=== PATIENT | male | born 1995 | race Caucasian/White ===

== ENCOUNTER 2016-07-09 15:43 | Emergency (ER) | payer BC, OTHER ==
[~2016-07-09] VITALS: Ht 170.2 cm; Wt 95.0 kg
[~2016-07-09 15:43] MED LIST: Z.0.NO CURRENT MEDS
[2016-07-09 15:53] VITALS: BP 135/80; PULSE 76; RESP 16; TEMP 98.4; O2SAT 98
[2016-07-09] MEDS ORDERED: CLON1TAB PO (16:03)
[2016-07-09] MEDS ORDERED: TRAZ100T4 PO (16:03)
[2016-07-09] MEDS ORDERED: FLUO40CA PO (16:03)
[2016-07-09] MEDS ORDERED: SODIUM CHLOR 0.9% 1000 ML INJ 1,000 ML IV SCH (16:17)
--- NOTE | 2016-07-09 16:27 | PD ---
HPI Chief Complaint: GI Complaint Time Seen by Provider: 16:12 Travel History International Travel<30 days: No Contact w/Intl Traveler<30days: No Traveled to known affect area: No History of Present Illness HPI Patient is a 20-year-old male who presents to emergency with complaints of nausea, vomiting and diarrhea for the past 4 days. Patient reports that for the past 4 days, he has not been able to eat or drink anything, reports that he did not eat anything out of the ordinary, denies any recent travels or trips. Patient reports that he has not taken any antibiotics recently, reports no sick contacts. Patient reports no abdominal pain, reports that he has cramping when he has his episodes of vomiting. Patient with no abdominal pain while in the emergency room. Patient denies any fevers or chills. Patient also reports that 2 weeks ago he started taking trazodone and place of clonazepam for his sleeping problems. Patient reports that he has noticed that he has been more forgetful over the past 2 weeks, reports concern that this may be due to his medication. Patient denies any headache or dizziness at this time , patient denies any vision changes. No other complaints. PFSH Past Medical History Anxiety: Yes Depression: Yes Influenza Vaccination: Yes Past Surgical History Oral Surgery: Yes Social History Alcohol Use: No Tobacco Use: No Substance Use: No Allergies-Medications (Allergen,Severity, Reaction): Coded Allergies: Penicillin (Verified Allergy, Severe, RASH, 07/09/16) Reported Meds & Prescriptions Reported Meds & Active Scripts Active Bentyl (Dicyclomine HCl) 20 Mg Tab 20 Mg PO TID Zofran Odt (Ondansetron Odt) 4 Mg Tab 4 Mg SL Q6HR PRN Reported Trazodone (Trazodone HCl) 100 Mg Tab 100 Mg PO HS Clonazepam 1 Mg Tab 1 Mg PO BID Fluoxetine (Fluoxetine HCl) 40 Mg Cap 80 Cap PO DAILY Review of Systems General / Constitutional: No: Fever Eyes: No: Visual changes HENT: No: Headaches Cardiovascular: No: Chest Pain or Discomfort Respiratory: No: Shortness of Breath Gastrointestinal: Positive: Nausea, Vomiting, Diarrhea, No: Abdominal Pain Genitourinary: No: Dysuria Musculoskeletal: No: Pain Skin: No Rash Neurologic: No: Weakness Psychiatric: No: Depression Endocrine: No: Polydipsia Hematologic/Lymphatic: No: Easy Bruising Physical Exam Narrative GENERAL: No acute distress, nontoxic SKIN: Focused skin assessment warm/dry. HEAD: Atraumatic. Normocephalic. EYES: Pupils equal and round. No scleral icterus. No injection or drainage. ENT: No nasal bleeding or discharge. Mucous membranes pink and moist. NECK: Trachea midline. No JVD. CARDIOVASCULAR: Regular rate and rhythm. No murmur appreciated. RESPIRATORY: No accessory muscle use. Clear to auscultation. Breath sounds equal bilaterally. GASTROINTESTINAL: Abdomen soft, non-tender, nondistended. Hepatic and splenic margins not palpable. MUSCULOSKELETAL: No obvious deformities. No clubbing. No cyanosis. No edema. NEUROLOGICAL: Awake and alert. No obvious cranial nerve deficits. Motor grossly within normal limits. Normal speech. PSYCHIATRIC: Appropriate mood and affect; insight and judgment normal. Data Data Last Documented VS Vital Signs Date Time Temp Pulse Resp B/P Pulse Ox O2 Delivery O2 Flow Rate FiO2 07/09/16 15:53 98.4 76 16 135/80 98 Room Air Orders Complete Blood Count With Diff (07/09/16 16:17) Comprehensive Metabolic Panel (07/09/16 16:17) Lipase (07/09/16 16:17) Prothrombin Time / Inr (Pt) (07/09/16 16:17) Act Partial Throm Time (Ptt) (07/09/16 16:17) Urinalysis - C+S If Indicated (07/09/16 16:17) Iv Access Insert/Monitor (07/09/16 16:17) Ondansetron Inj (Zofran Inj) (07/09/16 16:30) Sodium Chlor 0.9% 1000 Ml Inj (Ns 1000 M (07/09/16 16:17) Sodium Chloride 0.9% Flush (Ns Flush) (07/09/16 16:30) Famotidine Inj (Pepcid Inj) (07/09/16 16:30) Dicyclomine (Bentyl) (07/09/16 16:30) Sodium Chlor 0.9% 1000 Ml Inj (Ns 1000 M (07/09/16 16:30) Labs Laboratory Tests Test 07/09/16 16:22 White Blood Count 9.6 TH/MM3 Red Blood Count 5.22 MIL/MM3 Hemoglobin 15.3 GM/DL Hematocrit 46.7 % Mean Corpuscular Volume 89.5 FL Mean Corpuscular Hemoglobin 29.3 PG Mean Corpuscular Hemoglobin 32.7 % Concent Red Cell Distribution Width 12.9 % Platelet Count 274 TH/MM3 Mean Platelet Volume 9.4 FL Neutrophils (%) (Auto) 74.6 % Lymphocytes (%) (Auto) 16.6 % Monocytes (%) (Auto) 6.8 % Eosinophils (%) (Auto) 1.3 % Basophils (%) (Auto) 0.7 % Neutrophils # (Auto) 7.1 TH/MM3 Lymphocytes # (Auto) 1.6 TH/MM3 Monocytes # (Auto) 0.7 TH/MM3 Eosinophils # (Auto) 0.1 TH/MM3 Basophils # (Auto) 0.1 TH/MM3 CBC Comment DIFF FINAL Differential Comment Prothrombin Time 10.1 SEC Prothromb Time International 0.9 RATIO Ratio Activated Partial 29.1 SEC Thromboplast Time Sodium Level 143 MEQ/L Potassium Level 3.5 MEQ/L Chloride Level 107 MEQ/L Carbon Dioxide Level 27.0 MEQ/L Anion Gap 9 MEQ/L Blood Urea Nitrogen 12 MG/DL Creatinine 0.65 MG/DL Estimat Glomerular Filtration 158 ML/MIN Rate Random Glucose 90 MG/DL Calcium Level 9.0 MG/DL Total Bilirubin 0.4 MG/DL Aspartate Amino Transf 34 U/L (AST/SGOT) Alanine Aminotransferase 72 U/L (ALT/SGPT) Alkaline Phosphatase 173 U/L Total Protein 7.4 GM/DL Albumin 4.0 GM/DL Lipase 78 U/L [facility] Medical Decision Making Medical Screen Exam Complete: Yes Emergency Medical Condition: Yes Interpretation(s) Vital Signs Date Time Temp Pulse Resp B/P Pulse Ox O2 Delivery O2 Flow Rate FiO2 07/09/16 15:53 98.4 76 16 135/80 98 Room Air Differential Diagnosis Viral syndrome, gastroenteritis, electrolyte abnormality, confusion could be secondary to medication reaction as he recently started trazodone versus serotonin syndrome Narrative Course Patient is a 20-year-old male who presents to emergency room with complaints of nausea, vomiting and diarrhea for the past 4 days. Patient denies any sick contacts, denies any abdominal pain this time. Patient reports that he is unable to eat or drink anything due to his symptoms. Overall, abdomen is soft, nontender, nondistended, no peritoneal signs, patient nontoxic and evaluation. Plan to obtain lab work and give IV fluids and antiemetics. We'll perform serial abdominal exams while in the emergency room. Patient reports that for the past 2 weeks, he has been more confused and can't remember where he put things such as his glasses. Patient reports that he recently started taking trazodone in lieu of clonazepan. Patient denies taking any other new medications at this time. Patient denies any trauma to the head or neck. Patient with no neurological deficits from emergency room. Patient's symptoms began when he started taking trazodone, discussed with him that he is most likely suffering from side effects from trazodone, understands that he should call his primary care doctor and review his concerns so that he can have his medications changed. I did tell patient that he should stop using this medication as he is having side effects from the medication. Serotonin syndrome was considered, as patient has been describing some confusion, nausea, vomiting and diarrhea. Though this is a possibility, this is unlikely as patient's vital signs are stable. Typically with serotonin syndrome, patient would be tachycardic and hypertensive and hyperthermic. Patient is well- appearing, no flushed skin or diaphoresis or muscle rigidity or any tremors. Patient does not appear agitated, mucous membranes are moist and not dry. Vital Signs Date Time Temp Pulse Resp B/P Pulse Ox O2 Delivery O2 Flow Rate FiO2 07/09/16 15:53 98.4 76 16 135/80 98 Room Air CBC & BMP Diagram 07/09/16 16:22 Patient reevaluated, patient reports that he feels 100% better. Patient reports that he is able to drink and eat now. Abdomen is soft, nontender, nondistended, no peritoneal signs. Signs and symptoms of when to return to the emergency room was reviewed with patient in detail.. As per patient's trazodone , patient will hold off on taking further dose of trazodone, he will call his psychiatrist in the morning for medication change. Diagnosis Primary Impression: Nausea, vomiting and diarrhea Additional Impression: Medication reaction Qualified Code: T88.7XXA - Medication reaction, initial encounter Patient Instructions: General Instructions Departure Forms: Tests/Procedures, Work Release Enter return to work date: July 11, 2016 Additional Instructions: Please provide patient with a copy of his labwork at discharge Please call your primary care doctor first thing in the morning for earliest follow-up appointment Please stop taking trazodone until he was seen by your primary care doctor Please drink plenty of fluids Returns to emergency room if symptoms worsen or progress Return to emergency room as needed Med/Other Pt SpecificInfo: Prescription(s) given Scripts Dicyclomine (Bentyl)20 Mg Tab20 Mg PO TID #30 TAB Ref 0 Prov:Albertina Chacon DO 07/09/16 Ondansetron Odt (Zofran Odt)4 Mg Tab4 Mg SL Q6HR PRN (Nausea/Vomiting) #30 TAB Ref 0 Prov:Albertina Chacon DO 07/09/16 Disposition: 01 DISCHARGE HOME Condition: Stable Albertina Chacon DO July 09, 2016 16:27
[2016-07-09] MEDS ORDERED: SODIUM CHLORIDE 0.9% FLUSH 10 ML FLUSH IV FLUSH PRN (16:30)
[2016-07-09] MEDS ORDERED: DICYCLOMINE HCL 10 MG CAP PO ONE (16:30)
[2016-07-09] MEDS ORDERED: FAMOTIDINE 20 MG/2 ML VIAL IV PUSH ONE (16:30)
[2016-07-09] MEDS ORDERED: ONDANSETRON HCL 4 MG/2 ML VIAL IVP ONE (16:30)
[2016-07-09] MEDS ORDERED: SODIUM CHLOR 0.9% 1000 ML INJ 1,000 ML IV ONE (16:30)
[2016-07-09 17:25] LABS: AUTOMATED NEUTROPHIL # 7.1 TH/MM3 (1.8-7.7); BASOPHIL # 0.1 TH/MM3 (0-0.2); BASOPHIL % 0.7 % (0.0-2.0); EOSINOPHIL # 0.1 TH/MM3 (0-0.4); EOSINOPHIL % 1.3 % (0.0-4.0); HEMATOCRIT 46.7 % (39.0-51.0); LYMPH % 16.6 % (9.0-44.0); LYMPHOCYTE # 1.6 TH/MM3 (1.0-4.8); MEAN CELL VOLUME 89.5 FL (80.0-100.0); MEAN CORPUSCULAR HEMOGLOBIN 29.3 PG (27.0-34.0); MEAN CORPUSCULAR HGB CONC 32.7 % (32.0-36.0); MONO % 6.8 % (0.0-8.0); NEUT % 74.6 % (16.0-70.0); PLATELET COUNT 274 TH/MM3 (150-450); RED BLOOD COUNT 5.22 MIL/MM3 (4.50-5.90); RED CELL DISTRIBUTION WIDTH 12.9 % (11.6-17.2); WHITE BLOOD COUNT 9.6 TH/MM3 (4.0-11.0)
[2016-07-09 17:32] LABS: HEMO FLAGS DIFF FINAL
[2016-07-09 17:46] LABS: CHLORIDE 107 MEQ/L (98-107); POTASSIUM 3.5 MEQ/L (3.5-5.1); SODIUM (NA) 143 MEQ/L (136-145)
[2016-07-09 17:49] LABS: APTT (PATIENT) 29.1 SEC (24.3-30.1); INTERNATIONAL NORMALIZED RATIO 0.9 RATIO; PROTHROMBIN TIME - PATIENT 10.1 SEC (9.8-11.6)
[2016-07-09 17:50] LABS: ANION GAP 9 MEQ/L (5-15); BLOOD UREA NITROGEN 12 MG/DL (7-18)
[2016-07-09 17:52] LABS: ALT (GPT) 72 U/L (9-52); AST (GOT) 34 U/L (15-39)
[2016-07-09 17:53] LABS: GLOMERULAR FILTRATION RATE 158 ML/MIN (>89)
[2016-07-09 17:54] LABS: TOTAL BILIRUBIN ADULT 0.4 MG/DL (0.2-1.0)
[2016-07-09 17:55] LABS: ALKALINE PHOSPHATASE 173 U/L (45-117)
[2016-07-09] MEDS ORDERED: ZOFR4TAB3 SL (17:56)
[2016-07-09] MEDS ORDERED: BENT20TA PO (17:57)
[2016-07-09 18:55] LABS: BLOOD, URINE NEG (NEG); GLUCOSE,URINE NEG (NEG); KETONE, URINE NEG (NEG); NITRITE,URINE NEG (NEG)
[2016-07-09 19:11] VITALS: BP 134/76; PULSE 80; RESP 16; O2SAT 98
[2016-07-09 19:11] LABS: MUCUS URINE MOD /lpf (OCC); SQUAMOUS EPITHELIAL CELL URINE 0-5 /hpf (0-5); URINE COLOR YELLOW (YELLW/STRAW)
[2016-07-09 19:14] LABS: COMMENT (UR) CULT NOT INDICATED; CULTURE IF INDICATED CULT NOT INDICATED
== END 2016-07-09 19:15 | disposition home or self-care (01) ==
LOC: PHED 15:43
DX: R11.2 Nausea with vomiting, unspecified (principal); R19.7 Diarrhea, unspecified; T43.215A Adverse effect of selective serotonin and norepinephrine reuptake inhibitors, initial encounter; R41.0 Disorientation, unspecified; Y92.9 Unspecified place or not applicable
CPT/HCPCS: 80053; 81001; 83690; 85025; 85610; 85730; 96361; 96374; 96375; 99284; J2405; J7030

== ENCOUNTER 2016-07-11 10:33 | Inpatient (IN) | payer OTHER ==
[~2016-07-11] VITALS: Ht 170.2 cm; Wt 91.5 kg
[~2016-07-11 10:33] MED LIST changes: +BENT20TA PO; +CLON1TAB PO; +FLUO40CA PO; +TRAZ100T4 PO; -Z.0.NO CURRENT MEDS; +ZOFR4TAB3 SL
[2016-07-11 10:48] VITALS: BP 145/68; PULSE 89; RESP 16; TEMP 98.7; O2SAT 98
--- NOTE | 2016-07-11 10:55 | PD ---
HPI Chief Complaint: Suicide Ideation/Attempt Time Seen by Provider: 10:35 Travel History International Travel<30 days: No Contact w/Intl Traveler<30days: No Traveled to known affect area: No History of Present Illness HPI The patient is a 20-year-old male who presents to the emergency department for suicidal ideation. The patient has a history of major depressive disorder and social anxiety. The patient was being followed by a psychiatrist, [facility], in [place], [place]. The patient was placed on Prozac and Klonopin, however, is continuing to have symptoms. Therefore, the patient was placed on trazodone and states he had an improvement of his symptoms for approximately one month. However, he said increasing thoughts of suicide over the last several days, he does have a plan, he would drive his car into a tree. The patient states he is not receiving much social support from his parents, he recently moved out of the house 3 months ago and has been living with 2 roommates. He denies any previous suicide attempts. He denies any hallucinations or delusions. He drinks alcohol intermittently, approximately twice a month, but does have a history of prior alcohol abuse. He also smokes marijuana occasionally. Patient recently was having nausea, vomiting, diarrhea , states his diarrhea has resolved but he still has intermittent vomiting. The patient took Zofran prior to arrival and currently has no nausea. He denies any current abdominal pain. PFSH Past Medical History Anxiety: Yes Depression: Yes Past Surgical History Oral Surgery: Yes Social History Alcohol Use: No Tobacco Use: No Substance Use: No Allergies-Medications (Allergen,Severity, Reaction): Coded Allergies: Penicillin (Verified Allergy, Severe, RASH, 07/11/16) Reported Meds & Prescriptions Reported Meds & Active Scripts Active Bentyl (Dicyclomine HCl) 20 Mg Tab 20 Mg PO TID Zofran Odt (Ondansetron Odt) 4 Mg Tab 4 Mg SL Q6HR PRN Reported Trazodone (Trazodone HCl) 100 Mg Tab 100 Mg PO HS Clonazepam 1 Mg Tab 1 Mg PO BID Fluoxetine (Fluoxetine HCl) 40 Mg Cap 80 Cap PO DAILY Review of Systems Except as stated in HPI: all other systems reviewed are Neg HENT: No: Headaches, Lightheadedness Cardiovascular: No: Chest Pain or Discomfort Respiratory: No: Shortness of Breath Gastrointestinal: Positive: Nausea, Vomiting, Diarrhea, No: Abdominal Pain Psychiatric: Positive: Anxiety, Depression, Suicidal Ideations, Substance Abuse , No: Disorder of Thought, Homicidal Ideation Physical Exam Narrative GENERAL: Awake, alert, very pleasant 20-year-old male appears his stated age is in no acute respiratory distress. He does appear mildly anxious and slightly tearful during examination. SKIN: Focused skin assessment warm/dry. HEAD: Atraumatic. Normocephalic. EYES: Pupils equal and round. No scleral icterus. No injection or drainage. ENT: No nasal bleeding or discharge. Mucous membranes pink and moist. NECK: Trachea midline. No JVD. CARDIOVASCULAR: Regular rate and rhythm. No murmur appreciated. RESPIRATORY: No accessory muscle use. Clear to auscultation. Breath sounds equal bilaterally. GASTROINTESTINAL: Abdomen soft, non-tender, nondistended. No rebound tenderness. MUSCULOSKELETAL: No obvious deformities. No clubbing. No cyanosis. No edema. NEUROLOGICAL: Awake and alert. No obvious cranial nerve deficits. Motor grossly within normal limits. Normal speech. Nonfocal. PSYCHIATRIC: Slightly flat affect, mildly anxious, slightly tearful during examination. Data Data Last Documented VS Vital Signs Date Time Temp Pulse Resp B/P Pulse Ox O2 Delivery O2 Flow Rate FiO2 07/11/16 11:30 16 99 Room Air 07/11/16 10:48 98.7 89 145/68 Orders Complete Blood Count With Diff (07/11/16 10:44) Comprehensive Metabolic Panel (07/11/16 10:44) Thyroid Stimulating Hormone (07/11/16 10:44) Psych Screen (07/11/16 10:44) Drug Screen, Random Urine (07/11/16 10:44) Alcohol (Ethanol) (07/11/16 10:44) Labs Laboratory Tests Test 07/11/16 11:06 White Blood Count 9.2 TH/MM3 Red Blood Count 5.04 MIL/MM3 Hemoglobin 15.0 GM/DL Hematocrit 44.7 % Mean Corpuscular Volume 88.8 FL Mean Corpuscular Hemoglobin 29.8 PG Mean Corpuscular Hemoglobin 33.5 % Concent Red Cell Distribution Width 12.3 % Platelet Count 218 TH/MM3 Mean Platelet Volume 8.8 FL Neutrophils (%) (Auto) 74.5 % Lymphocytes (%) (Auto) 13.1 % Monocytes (%) (Auto) 7.3 % Eosinophils (%) (Auto) 2.4 % Basophils (%) (Auto) 2.7 % Neutrophils # (Auto) 6.9 TH/MM3 Lymphocytes # (Auto) 1.2 TH/MM3 Monocytes # (Auto) 0.7 TH/MM3 Eosinophils # (Auto) 0.2 TH/MM3 Basophils # (Auto) 0.2 TH/MM3 CBC Comment DIFF FINAL Differential Comment Sodium Level 142 MEQ/L Potassium Level 3.7 MEQ/L Chloride Level 108 MEQ/L Carbon Dioxide Level 25.9 MEQ/L Anion Gap 8 MEQ/L Blood Urea Nitrogen 4 MG/DL Creatinine 0.59 MG/DL Estimat Glomerular Filtration 177 ML/MIN Rate Random Glucose 90 MG/DL Calcium Level 8.5 MG/DL Total Bilirubin 0.8 MG/DL Aspartate Amino Transf 23 U/L (AST/SGOT) Alanine Aminotransferase 59 U/L (ALT/SGPT) Alkaline Phosphatase 162 U/L Total Protein 7.0 GM/DL Albumin 3.8 GM/DL Thyroid Stimulating Hormone 2.310 uIU/ML 3rd Gen Ethyl Alcohol Level LESS THAN 3 MG/DL MDM Medical Decision Making Medical Screen Exam Complete: Yes Emergency Medical Condition: Yes Medical Record Reviewed: Yes Interpretation(s) Laboratory Tests Test 07/11/16 11:06 White Blood Count 9.2 TH/MM3 Red Blood Count 5.04 MIL/MM3 Hemoglobin 15.0 GM/DL Hematocrit 44.7 % Mean Corpuscular Volume 88.8 FL Mean Corpuscular Hemoglobin 29.8 PG Mean Corpuscular Hemoglobin 33.5 % Concent Red Cell Distribution Width 12.3 % Platelet Count 218 TH/MM3 Mean Platelet Volume 8.8 FL Neutrophils (%) (Auto) 74.5 % Lymphocytes (%) (Auto) 13.1 % Monocytes (%) (Auto) 7.3 % Eosinophils (%) (Auto) 2.4 % Basophils (%) (Auto) 2.7 % Neutrophils # (Auto) 6.9 TH/MM3 Lymphocytes # (Auto) 1.2 TH/MM3 Monocytes # (Auto) 0.7 TH/MM3 Eosinophils # (Auto) 0.2 TH/MM3 Basophils # (Auto) 0.2 TH/MM3 CBC Comment DIFF FINAL Differential Comment Sodium Level 142 MEQ/L Potassium Level 3.7 MEQ/L Chloride Level 108 MEQ/L Carbon Dioxide Level 25.9 MEQ/L Anion Gap 8 MEQ/L Blood Urea Nitrogen 4 MG/DL Creatinine 0.59 MG/DL Estimat Glomerular Filtration 177 ML/MIN Rate Random Glucose 90 MG/DL Calcium Level 8.5 MG/DL Total Bilirubin 0.8 MG/DL Aspartate Amino Transf 23 U/L (AST/SGOT) Alanine Aminotransferase 59 U/L (ALT/SGPT) Alkaline Phosphatase 162 U/L Total Protein 7.0 GM/DL Albumin 3.8 GM/DL Thyroid Stimulating Hormone 2.310 uIU/ML 3rd Gen Ethyl Alcohol Level LESS THAN 3 MG/DL Differential Diagnosis Differential diagnoses includes major depressive disorder NOS, adjustment reaction, stress reaction, suicidal ideation, social anxiety, mood disorder NOS. Narrative Course Labs are drawn and sent. I discussed the patient with the charge nurse at [facility], the patient will be transferred after laboratory evaluation has resulted to the psychiatric unit. The patient has been placed under a Bai act is currently suicidal and does have a plan. Labs are unremarkable. The patient is medically clear to be evaluated by psychiatry. The patient will be transferred to [facility] to be evaluated by psychiatry. Disposition as per psych. Diagnosis Primary Impression: Major depressive disorder Qualified Code: F33.9 - Recurrent major depressive disorder, remission status unspecified Additional Impression: Suicidal ideation Condition: Stable Nelson Currie MD July 11, 2016 10:55
[2016-07-11 11:23] LABS: AUTOMATED NEUTROPHIL # 6.9 TH/MM3 (1.8-7.7); BASOPHIL # 0.2 TH/MM3 (0-0.2); BASOPHIL % 2.7 % (0.0-2.0); EOSINOPHIL # 0.2 TH/MM3 (0-0.4); EOSINOPHIL % 2.4 % (0.0-4.0); HEMATOCRIT 44.7 % (39.0-51.0); LYMPH % 13.1 % (9.0-44.0); LYMPHOCYTE # 1.2 TH/MM3 (1.0-4.8); MEAN CELL VOLUME 88.8 FL (80.0-100.0); MEAN CORPUSCULAR HEMOGLOBIN 29.8 PG (27.0-34.0); MEAN CORPUSCULAR HGB CONC 33.5 % (32.0-36.0); MONO % 7.3 % (0.0-8.0); NEUT % 74.5 % (16.0-70.0); PLATELET COUNT 218 TH/MM3 (150-450); RED BLOOD COUNT 5.04 MIL/MM3 (4.50-5.90); RED CELL DISTRIBUTION WIDTH 12.3 % (11.6-17.2); WHITE BLOOD COUNT 9.2 TH/MM3 (4.0-11.0)
[2016-07-11 11:24] LABS: HEMO FLAGS DIFF FINAL
[2016-07-11 11:29] LABS: CHLORIDE 108 MEQ/L (98-107); POTASSIUM 3.7 MEQ/L (3.5-5.1); SODIUM (NA) 142 MEQ/L (136-145)
[2016-07-11 11:34] LABS: ANION GAP 8 MEQ/L (5-15); BICARBONATE 25.9 MEQ/L (21.0-32.0); BLOOD UREA NITROGEN 4 MG/DL (7-18)
[2016-07-11 11:37] LABS: ALT (GPT) 59 U/L (9-52); AST (GOT) 23 U/L (15-39); GLOMERULAR FILTRATION RATE 177 ML/MIN (>89)
[2016-07-11 11:38] LABS: TOTAL BILIRUBIN ADULT 0.8 MG/DL (0.2-1.0)
[2016-07-11 11:40] LABS: ALKALINE PHOSPHATASE 162 U/L (45-117)
[2016-07-11 13:20] VITALS: BP 137/70
--- NOTE | 2016-07-11 18:07 | PD ---
History of Present Illness Chief Complaint: Suicide Ideation/Attempt Time Seen by Provider: 17:20 Travel History International Travel<30 Days: No Contact w/Intl Traveler<30days: No Known affected area: No Legal Status Legal Status: Bai Act Bai Act Signed By: Nelson Bai Act Comment: Pt. states increasing thoughts of suicide History of Present Illness: History of Present Illness HPI The patient is a 20-year-old male with history of social anxiety disorder and depression who presents to the emergency department for psychiatric evaluation with complaints of suicidal ideation. The patient has been being followed by a psychiatrist on line for the past 1 and 1/2 year . The patient was placed on Prozac and Klonopin with positive clinical results but has been experiencing increase in symptoms in the last 5 days. He requested the physician taper him off the Klonopin and he was placed on trazodone but reports experiencing nausea and vomiting with Trazodone so it was discontinued.He has been experiencing increasing thoughts of suicide over the last several days with a plan to drive his car into a tree. he has not made any attempts at harming himself. he also reports increase in anxiety with panic attacks which have interfered with his ability to function at work. Patient was placed under a BA by Ed physician. EMR is reviewed. No previous contact with [facility] psychiatric department. he denies any previous inpatient psychiatric treatment. Current toxicology is pending . He admits he has been smoking marijuana for the past 2 months on a 5 day per week basis. Patient is alert and oriented male that appears stated age. He is clean and casually dressed. He is cooperative. Mood is anxious and depressed. Speech is clear, logical and goal directed. There is no psychosis and no skylar. He endorses suicidal ideation with plan to crash his car into a tree but no intent. States " I don't want to ". Sleeping well, level of energy is low, anhedonic. . PFSH Past Medical History Anxiety: Yes (social anxiety disorder) Depression: Yes Diminished Hearing: No Psychiatric: Yes (hx of suicide thoughts) Tetanus Vaccination: > 5 Years Influenza Vaccination: Yes Past Surgical History Oral Surgery: Yes (dental work) Psychiatric History Psychiatric History Hx Psychiatric Treatment: has been receiving psychiatric medication x 1 and 1/2 year via internet History of Inpatient Treatment: No Guns or firearms in home: No Social History Single male. Completed high school and some college. works as a on call pharmacy technician x 2 years. Lives with 2 roommates. never Hx Alcohol Use: Yes (hx of ETOH use but states now beer twice a month) Hx Tobacco Use: Yes (smokes cigs 4 a day) Hx Substance Use: No Substance Use Type: Marijuana Hx of Substance Use Treatment: No Family Psychiatric History one aunt with depression and attempted suicide Allergies-Medications (Allergen,Severity, Reaction): Coded Allergies: Penicillin (Verified Allergy, Severe, RASH, 07/11/16) Reported Meds & Prescriptions Reported Meds & Active Scripts Active Bentyl (Dicyclomine HCl) 20 Mg Tab 20 Mg PO TID Zofran Odt (Ondansetron Odt) 4 Mg Tab 4 Mg SL Q6HR PRN Reported Trazodone (Trazodone HCl) 100 Mg Tab 100 Mg PO HS Clonazepam 1 Mg Tab 1 Mg PO BID Fluoxetine (Fluoxetine HCl) 40 Mg Cap 80 Cap PO DAILY Review of Systems Constitutional: COMPLAINS OF: Change in appetite Endocrine: DENIES: Heat/cold intolerance, Polydipsia, Polyuria, Polyphagia Eyes: DENIES: Blurred vision, Diplopia, Eye inflammation, Eye pain, Vision loss , Photosensitivity, Double Vision Ears, nose, mouth, throat: DENIES: Tinnitus, Hearing loss, Vertigo, Nasal discharge, Oral lesions, Throat pain, Hoarseness, Ear Pain, Running Nose, Epistaxis, Sinus Pain, Toothache, Odynophagia Respiratory: DENIES: Apneas, Cough, Snoring, Wheezing, Hemoptysis, Sputum production, Shortness of breath Cardiovascular: DENIES: Chest pain, Palpitations, Syncope, Dyspnea on Exertion , PND, Lower Extremity Edema, Orthopnea, Claudication Gastrointestinal: COMPLAINS OF: Nausea, Vomiting Genitourinary: DENIES: Sexual dysfunction, Urinary frequency, Urinary incontinence, Urgency, Hematuria, Dysuria, Nocturia, Penile Discharge, Testicular Pain, Testicular Swelling Musculoskeletal: DENIES: Joint pain, Muscle aches, Stiffness, Joint Swelling, Back pain, Neck pain Integumentary: DENIES: Abnormal pigmentation, Nail changes, Pruritus, Rash Hematologic/lymphatic: DENIES: Bruising, Lymphadenopathy Immunologic/allergic: DENIES: Eczema, Urticaria Neurologic: DENIES: Abnormal gait, Headache, Localized weakness, Paresthesias, Seizures, Speech Problems, Tremor, Poor Balance Psychiatric: COMPLAINS OF: Anxiety, Depression, Suicidal Ideation Exam Alert: Yes [place]: Person (ox 4) Mood: Anxious, Depressed Affect: Restricted Speech: Clear, Logical Eye Contact: Normal Memory Intact: Comment (no impairmetn) Hallucinations: Other (negative) Delusions: No Suicidal: Intent (neagtive), Plan, Ideation Homicidal: Ideation (neagtive) Insight/Judgement Fair. Not impaired. MDM Medical Decision Making Medical Record Reviewed: Yes Assessment/Plan 20 year old male with history of depression and anxiety under a BA for increase in symptoms of depression and anxiety with suicidal ideation and plan to crash his car into a tree. No intent ion of carrying thru at this time. The patient has been experiencing difficulty and has had a recent medication change and at present time is experiencing difficulty functioning. At this time patient requires inpatient treatment to adjust his medications, to reduce current symptoms as well as to maintain his safety. We have no prior history with this patient and his treating psychiatrist is only available for telemedicine visits. Orders Complete Blood Count With Diff (07/11/16 10:44) Comprehensive Metabolic Panel (07/11/16 10:44) Thyroid Stimulating Hormone (07/11/16 10:44) Psych Screen (07/11/16 10:44) Drug Screen, Random Urine (07/11/16 10:44) Alcohol (Ethanol) (07/11/16 10:44) Diet Regular Basic (07/11/16 Dinner) Admit Order (Ed Use Only) (07/11/16 ) Admit To Inpatient Psych (07/11/16 ) Code Status (07/11/16 18:02) Vital Signs (Adult) TANJA.[id number].E (07/11/16 18:02) Activity Oob Ad Parisa (07/11/16 18:02) Level Of Observation (Psych) (07/11/16 18:02) Acetaminophen (Tylenol) (07/11/16 18:15) Magnesium Hydroxide Liq (Milk Of Magnesi (07/11/16 18:15) Al-Mag Hy-Si 40-40-4 Mg/Ml Liq (Mag-Al P (07/11/16 18:15) Basic Metabolic Panel (Bmp) (07/12/16 06:00) Lipid Profile (07/12/16 06:00) Hemoglobin (Hgb) A1c (07/12/16 06:00) Results Vital Signs Date Time Temp Pulse Resp B/P Pulse Ox O2 Delivery O2 Flow Rate FiO2 07/11/16 13:20 81 16 137/70 07/11/16 11:30 16 99 Room Air 07/11/16 10:48 98.7 89 16 145/68 98 Laboratory Tests Test 07/11/16 11:06 White Blood Count 9.2 Red Blood Count 5.04 Hemoglobin 15.0 Hematocrit 44.7 Mean Corpuscular Volume 88.8 Mean Corpuscular Hemoglobin 29.8 Mean Corpuscular Hemoglobin 33.5 Concent Red Cell Distribution Width 12.3 Platelet Count 218 Mean Platelet Volume 8.8 Neutrophils (%) (Auto) 74.5 Lymphocytes (%) (Auto) 13.1 Monocytes (%) (Auto) 7.3 Eosinophils (%) (Auto) 2.4 Basophils (%) (Auto) 2.7 Neutrophils # (Auto) 6.9 Lymphocytes # (Auto) 1.2 Monocytes # (Auto) 0.7 Eosinophils # (Auto) 0.2 Basophils # (Auto) 0.2 CBC Comment DIFF FINAL Differential Comment Sodium Level 142 Potassium Level 3.7 Chloride Level 108 Carbon Dioxide Level 25.9 Anion Gap 8 Blood Urea Nitrogen 4 Creatinine 0.59 Estimat Glomerular Filtration 177 Rate Random Glucose 90 Calcium Level 8.5 Total Bilirubin 0.8 Aspartate Amino Transf 23 (AST/SGOT) Alanine Aminotransferase 59 (ALT/SGPT) Alkaline Phosphatase 162 Total Protein 7.0 Albumin 3.8 Thyroid Stimulating Hormone 2.310 3rd Gen Ethyl Alcohol Level LESS THAN 3 Diagnosis Primary Impression: Major depressive disorder Additional Impression: Suicidal ideation Admitting Information Admitting Physician Requests: Admit (Dr. multani) Condition: Stable Problem Qualifiers Primary Impression: Major depressive disorder Qualified Code: F33.9 - Recurrent major depressive disorder, remission status unspecified Shawna Osborn [facility] July 11, 2016 18:07 Shawna Osborn [facility] July 11, 2016 18:07
[2016-07-11] MEDS ORDERED: ACETAMINOPHEN 325 MG TAB PO PRN (18:15)
[2016-07-11] MEDS ORDERED: ALUMINUM/MAGNESIUM/SIMETH 30 ML CUP PO PRN (18:15)
[2016-07-11] MEDS ORDERED: MAGNESIUM HYDROXIDE SUSP 30 ML CUP PO PRN (18:15)
[2016-07-11 18:53] VITALS: BP 130/66; PULSE 90; RESP 20; TEMP 97.6; O2SAT 98
[2016-07-11 21:30] VITALS: BP 142/76; PULSE 72; RESP 16; TEMP 97.8
[2016-07-11] MEDS ORDERED: traZODone HCL 100 MG TAB PO PRN (22:30)
[2016-07-12 06:28] VITALS: BP 130/60; PULSE 74; RESP 18; TEMP 97.7; O2SAT 96
[2016-07-12 10:10] LABS: ANION GAP 9 MEQ/L (5-15); BLOOD UREA NITROGEN 4 MG/DL (7-18); CHLORIDE 104 MEQ/L (98-107); GLOMERULAR FILTRATION RATE 115 ML/MIN (>89); HDL CHOLESTEROL 40.5 MG/DL (40.0-60.0); LDL CHOLESTEROL 151 MG/DL (0-99); POTASSIUM 3.5 MEQ/L (3.5-5.1); SODIUM (NA) 138 MEQ/L (136-145)
[2016-07-12 12:22] LABS: HEMOGLOBIN A1a 1.3 %; HEMOGLOBIN A1b 1.3 %; HEMOGLOBIN Ao 87.4 %; HEMOGLOBIN LA1C 1.9 %; HEMOGLOBIN P3 3.1 %
--- NOTE | 2016-07-12 13:20 | HHI.HP ---
Provisional Diagnosis Admission Date July 11, 2016 at 18:07 Pyrites I. Major depression, single episode, severe Certification of Person's Competence To Provide Express and Informed Consent I have personally examined Miky Chinchilla , a person being served at [facility] on, July 12, 2016 13:07. Express and informed consent means consent voluntarily given in writing, by a competent person, after sufficient explanation and disclosure of the subject matter involved to enable the person to make a knowing and willful decision without any element of force, fraud, deceit, duress, or other form of constraint or coercion. This person is 18 years of age or older, is not now known to be incompetent to consent to treatment with a guardian advocate, and does not have a health care surrogate or proxy currently making medical treatment decisions. I have found this person to be one of the following: [X] Competent to provide express and informed consent, as defined above, for voluntary admission to this facility and is competent to provide express and informed consent for treatment. He/she has the consistent capacity to make well reasoned, willful, and knowing decisions concerning his or her medical or mental health treatment. The person fully and consistently understands the purpose of the admission for examination/placement and is fully capable of personally exercising all rights assured [place] Incompetent to provide express and informed consent to voluntary admission, and this is incompetent to provide express and informed consent to treatment. The person must be transferred to involuntary status and a petition for a guardian advocate filed with the Circuit Court. [] Refusing to provide express and informed consent to voluntary admission but is competent to provide express and informed consent for treatment. The person must be discharged or transferred to involuntary status. Form shall be completed within 24 hours of a person's arrival at the receiving facility and filed in the clinical record of each person: 1. Admitted on a voluntary basis 2. Permitted to provide express and informed consent to his/her own treatment 3. Allowed to transfer from involuntary to voluntary status 4. Prior to permitting a person to consent to his or her own treatment after having been previously found incompetent to consent to treatment. History of Present Illness Capacity: Has Capacity HPI This is a 20-year-old male with a one-year history of increasing depressive symptoms as a result of anxiety and panic attacks. The patient describes a history of anxiety symptoms dating back at least a year ago and he dropped out of college as a result. He describes social anxiety, diaphoresis, intolerance of being around others, tremulousness, etc. He experiences intermittent panic attacks which are unpredictable and cause shortness of breath, heart palpitations, feelings of dread and doom, diaphoresis, and [place] phobia. He has been treated by a tele-psychiatrist with increasing doses of Prozac, most recently 80 mg per day. He was also treated with Klonopin. Several days ago his anxiety and depression grew worse. The depressive symptoms included depressed mood, anhedonia, social withdrawal, decreased self- esteem, lack of energy, insomnia, and suicidal ideation. On the date of admission he drove himself to this emergency room in a panic attack, stating that he was feeling suicidal and out of control. Patient does have family that live locally and are supportive although his father works a lot. Patient has tried to consume alcohol but states it makes his symptoms worse. Review of Systems ROS Limitations: Other (anxiety sufficient to impair cognition.) Past Psych History Psychological trauma history Denied Violence risk - others (6 mos) Minimal Violence risk - self (6 mos) Moderate Substance Abuse History Drugs/Alcohol past 12 months Very periodic alcohol abuse. Past Family Social History Coded Allergies: Penicillin (Verified Allergy, Severe, RASH, 07/11/16) Active Scripts Dicyclomine (Bentyl)20 Mg Tab20 Mg PO TID #30 TAB Ref 0 Prov:Albertina Chacon DO 07/09/16 Ondansetron Odt (Zofran Odt)4 Mg Tab4 Mg SL Q6HR PRN (Nausea/Vomiting) #30 TAB Ref 0 Prov:Albertina Chacon DO 07/09/16 Reported Medications Trazodone 100 Mg [id number] Mg PO HS #30 TAB Ref 0 07/09/16 Clonazepam 1 Mg Tab1 Mg PO BID #60 TAB Ref 0 07/09/16 Fluoxetine 40 Mg Cap80 Cap PO DAILY #30 CAP Ref 0 07/09/16 Current Medications Medications (Trade) Dose Ordered Sig/David Route Start Time Stop Time Status Last Admin (Tylenol) 650 mg Q4H PRN PO 07/11/16 18:15 (Milk Of Magnesia Liq) 30 ml DAILY PRN PO 07/11/16 18:15 (Mag-Al Plus Susp Liq) 30 ml Q6H PRN PO 07/11/16 18:15 Family History Positive for depression and anxiety disorders. Social History Currently unemployed. Denies a history of drug abuse. Does have family support. Not and has no children. Patient's Strengths (min. 2) Verbal and has access to healthcare. Physical Exam GENERAL: SKIN: Warm and dry. HEAD: Normocephalic. EYES: No scleral icterus. No injection or drainage. NECK: Supple, trachea midline. No JVD or lymphadenopathy. CARDIOVASCULAR: Regular rate and rhythm without murmurs, gallops, or rubs. RESPIRATORY: Breath sounds equal bilaterally. No accessory muscle use. GASTROINTESTINAL: Abdomen soft, non-tender, nondistended. MUSCULOSKELETAL: No cyanosis, or edema. BACK: Nontender without obvious deformity. No CVA tenderness. Vital Signs Vital Signs Date Time Temp Pulse Resp B/P Pulse Ox O2 Delivery O2 Flow Rate FiO2 07/12/16 06:28 97.7 74 18 130/60 96 07/11/16 11:30 Room Air Mental Status Examination Speech: Unremarkable Orientation: x3 Memory: Unremarkable Thought Process: Circumstantial, Tangential Thought Content: Depersonal Hallucination Type: None Attention and Concentration: Good Suicidal Ideation: Yes Previous Suicide Attempts: No Homicidal Ideation: No Previous Homicide Attempts: No Insight: Fair Judgment: Unrealistic Affect: Anxious, Sad Mood: Sad, Anxious Motor Activity: Normal gait Assessment & Plan Problem List: (1) Depression, major, single episode, moderate ICD Code: F32.1 (2) Panic disorder ICD Code: F41.0 (3) Social anxiety disorder ICD Code: F40.10 Assessment & Plan Estimated LOS: 7 days. 20-year-old male with severely uncontrolled symptoms of anxiety that have led to significant symptoms of major depression. Patient now incapacitated from work and experiencing suicidal ideation. This physician will alter his medications as he was receiving too much Prozac and insufficient amount of anti-anxiety treatment. He will be started on Abilify at bedtime. He will be continued on some amount of clonazepam because this physician is concerned about withdrawal. He will be worked up for organic causes of anxiety and therefore thyroid function studies will be completed. He will also receive an EKG to make sure that the psychotropic medications are not interfering with his cardiac conduction system. Ganga Glaser MD July 12, 2016 13:19
[2016-07-12] MEDS: FLUoxetine HCL 20 MG CAP PO SCH (14:52)
[2016-07-12 18:48] VITALS: BP 125/62; PULSE 77; RESP 18; TEMP 98.3; O2SAT 97
[2016-07-12] MEDS: clonazePAM 1 MG TAB PO SCH (21:25)
[2016-07-12] MEDS: ARIPiprazole 2 MG TAB PO SCH (21:25)
[2016-07-13 05:47] VITALS: BP 121/60; PULSE 70; RESP 16; TEMP 97.6; O2SAT 98
[2016-07-13] MEDS: FLUoxetine HCL 20 MG CAP PO SCH (08:49)
[2016-07-13] MEDS: clonazePAM 1 MG TAB PO SCH ×2 (08:49→21:13)
--- NOTE | 2016-07-13 15:41 | HHI.PYPN ---
Subjective Remarks Patient was seen and case discussed with nursing. Patient is pleasant and cooperative with exam. Patient states that his suicidal ideation has resolved once he was admitted to the hospital. Feels that he is in a safe place. Mood is "pretty good." He spoke about his medications and he prefers not to be on Klonopin given its addictive nature and this will be noted in the chart. Asking for medication for sleep. Objective Alert: Yes [place]: Person (ox 4), Place, Date, Situation Mood: Anxious, Depressed Affect: Other (anxious) Memory Intact: Comment (no impairmetn) Hallucinations: Other (negative) Delusions: No Delusion Type: Other Suicidal: Intent (neagtive), Plan, Ideation (denies) Homicidal: Ideation (neagtive) Insight/Judgment Fair Vitals/IOs Vital Signs Date Time Temp Pulse Resp B/P Pulse Ox O2 Delivery O2 Flow Rate FiO2 07/13/16 05:47 97.6 70 16 121/60 98 07/11/16 11:30 Room Air Assessment & Plan Problem List: (1) Depression, major, single episode, moderate ICD Code: F32.1 (2) Panic disorder ICD Code: F41.0 (3) Social anxiety disorder ICD Code: F40.10 Assessment & Plan Add Imodium for diarrhea. Add when necessary Benadryl for sleep Justification for Cont. Inpt. Patient will decompensate in a less restrictive setting Andres Johnson DO July 13, 2016 15:41
[2016-07-13 17:58] VITALS: BP 133/67; PULSE 69; RESP 18; TEMP 97.9; O2SAT 96
[2016-07-13] MEDS: ARIPiprazole 2 MG TAB PO SCH (21:00)
[2016-07-13] MEDS: diphenhydrAMINE HCL 50 MG CAP PO PRN (21:12)
[2016-07-14 06:31] VITALS: BP 128/74; PULSE 77; RESP 16; TEMP 97.8; O2SAT 100
[2016-07-14] MEDS: FLUoxetine HCL 20 MG CAP PO SCH (09:00)
[2016-07-14] MEDS: clonazePAM 1 MG TAB PO SCH ×2 (09:03→21:28)
--- NOTE | 2016-07-14 11:01 | HHI.PYPN ---
Subjective Remarks Patient was seen and case discussed with nursing. Patient's diarrhea has resolved. Says his social anxiety is improving and he is no longer anxious here in the hospital. He is seen playing games with other patients. Says his suicidal ideation has resolved. Patient does appear brighter. Compliant with medications and tolerating them well Objective Alert: Yes [place]: Person (ox 4), Place, Date, Situation Mood: Calm Affect: Restricted Memory Intact: Comment (no impairmetn) Hallucinations: Other (negative) Delusions: No Delusion Type: Other Suicidal: Intent (neagtive), Plan, Ideation (denies) Homicidal: Ideation (neagtive) Insight/Judgment Poor Vitals/IOs Vital Signs Date Time Temp Pulse Resp B/P Pulse Ox O2 Delivery O2 Flow Rate FiO2 07/14/16 06:31 97.8 77 16 128/74 100 07/11/16 11:30 Room Air Assessment & Plan Problem List: (1) Depression, major, single episode, moderate ICD Code: F32.1 (2) Panic disorder ICD Code: F41.0 (3) Social anxiety disorder ICD Code: F40.10 Assessment & Plan Continue current treatment plan Justification for Cont. Inpt. Patient will decompensate in a less restrictive setting Andres Johnson DO July 14, 2016 11:01
[2016-07-14 20:00] VITALS: BP 128/64; PULSE 66; RESP 16; TEMP 98; O2SAT 100
[2016-07-14] MEDS: ARIPiprazole 2 MG TAB PO SCH (21:00)
[2016-07-14] MEDS: diphenhydrAMINE HCL 50 MG CAP PO PRN (21:28)
[2016-07-14] MEDS: LOPERAMIDE HCL 2 MG CAP PO PRN (21:56)
[2016-07-15 06:14] VITALS: BP 116/61; PULSE 61; RESP 16; TEMP 98.1
[2016-07-15] MEDS: FLUoxetine HCL 20 MG CAP PO SCH (09:18)
[2016-07-15] MEDS: clonazePAM 1 MG TAB PO SCH (09:18)
--- NOTE | 2016-07-15 12:53 | HHI.DS ---
Psychiatry Discharge Summary Inpatient Psychiatric care?: Yes Advance Directive: No Reason Not Provided: Patient not interested Mental Health AdvanceDirective: No Health Care Proxy: No Admission Admission Date July 11, 2016 at 18:07 Admission Diagnosis: (1) Depression, major, single episode, moderate ICD Code: F32.1 Brief History This is a 20-year-old male with a one-year history of increasing depressive symptoms as a result of anxiety and panic attacks. The patient describes a history of anxiety symptoms dating back at least a year ago and he dropped out of college as a result. He describes social anxiety, diaphoresis, intolerance of being around others, tremulousness, etc. He experiences intermittent panic attacks which are unpredictable and cause shortness of breath, heart palpitations, feelings of dread and doom, diaphoresis, and [place] phobia. He has been treated by a tele-psychiatrist with increasing doses of Prozac, most recently 80 mg per day. He was also treated with Klonopin. Several days ago his anxiety and depression grew worse. The depressive symptoms included depressed mood, anhedonia, social withdrawal, decreased self- esteem, lack of energy, insomnia, and suicidal ideation. On the date of admission he drove himself to this emergency room in a panic attack, stating that he was feeling suicidal and out of control. Patient does have family that live locally and are supportive although his father works a lot. Patient has tried to consume alcohol but states it makes his symptoms worse. Tobacco Use In Past 30 Days: No Tobacco Past 30 Days Alcohol Use: 2-4 Times Per Month Hospital Course Patient participated in individual and group therapies. Antidepressant and anti -anxiety medicines were modified. Patient was placed on clonazepam 2 mg every 12 hours after extensive informed consent. Patient understands he may become dependent on this medication and that if he does, he cannot go without it for risk of seizure,, and . However, patient wanted to stay on this medicine because it significantly helps with his anxiety disorder. At the time of discharge he reported no suicidal or homicidal ideation, plan or intent. No psychosis. Cognition intact and he verbally contracted for safety. Results Blood Pressure 116 / 61 Vital Signs Date Time Temp Pulse Resp B/P Pulse Ox O2 Delivery O2 Flow Rate FiO2 07/15/16 06:14 98.1 61 16 116/61 07/14/16 20:00 100 07/11/16 11:30 Room Air Laboratory Results Test 5/5/17 08:40 Hemoglobin A1c 4.7 % (4.3-6.0) Triglycerides Level 111 MG/DL (42-150) Cholesterol Level 214 MG/DL (120-200) LDL Cholesterol 151 MG/DL (0-99) HDL Cholesterol 40.5 MG/DL (40.0-60.0) Summary of Procedures None Pending results at discharge: No Medications # of Antipsychotic meds at D/C: 1 Appropriate >1 Antipsych meds?: 1 Approp Antipsych med options 1 - Minimum of three failed multiple trials of monotherapy. 2 - Documented plan to taper to monotherapy due to previous use of multiple meds OR cross-taper in progress at D/C. 3 - Documentation of augmentation of Clozapine. 4 - Justification other than those listed in allowable values 1-3, document here : Discharge Discharge Date: July 15, 2016 Discharge Diagnosis: (1) Depression, major, single episode, moderate Diagnosis: Principal ICD Code: F32.1 Mental Status Exam at Disch At the time of discharge the patient exhibited no suicidal or homicidal ideation , plan or intent. No psychotic symptoms. Cognition was intact. Insight and judgment were deemed adequate. Pt Condition on Discharge: Stable Discharge Disposition: Discharge Home Discharge Instructions Diet Instructions: As Tolerated, No Restrictions Activities you can perform: Regular-No Restrictions Scheduled Appointment: Bishnu Samuels Appointment Date: July 22, 2016 Appointment Time: 7:30am Discharge Time <= 30 minutes Discharge/Advance Care Plan Health Problems: (1) Depression, major, single episode, moderate (2) Panic disorder (3) Social anxiety disorder Goals to promote your health * To prevent worsening of your condition and complications * To maintain your health at the optimal level Directions to meet your goals Take your medications as prescribed Follow your dietary instruction Follow activity as directed Keep your appointments as scheduled Take your immunizations and boosters as scheduled If your symptoms worsen call your PCP, if no PCP go to Urgent Care Center or Emergency Room For 30/09 questions related to your inpatient stay or results of tests pending at discharge, please contact Dr. Ganga Glaser at Smoking is Dangerous to Your Health. Avoid second hand smoking Ganga Glaser MD July 15, 2016 12:53
[2016-07-15] MEDS ORDERED: FLUO20CA4 PO (12:55)
[2016-07-15] MEDS ORDERED: ABIL2TAB2 PO (12:55)
[2016-07-15] MEDS ORDERED: CLON1 PO (12:55)
[2016-07-15] MEDS: LOPERAMIDE HCL 2 MG CAP PO PRN (14:00)
== END 2016-07-15 15:15 | disposition home or self-care (01) | DRG 885 ==
LOC: PHED 10:33 → NEDA 18:07 → H260 21:23
PROVIDERS: ADMIT Psychiatry & Neurology Psychiatry; ATTEND Psychiatry & Neurology Psychiatry
DX: F32.1 Major depressive disorder, single episode, moderate (principal); R45.851 Suicidal ideations; F41.0 Panic disorder [episodic paroxysmal anxiety]; F40.10 Social phobia, unspecified; R11.2 Nausea with vomiting, unspecified; F17.210 Nicotine dependence, cigarettes, uncomplicated; Z81.8 Family history of other mental and behavioral disorders
CPT/HCPCS: 80048; 80053; 80061; 80307; 83036; 84443; 85025; 99281; 99284; Q0163